=== PATIENT | male | born 1965 | race Caucasian/White ===

== ENCOUNTER 2018-12-03 10:13 | Emergency (ER) | payer MEDICAID ==
[~2018-12-03] VITALS: Ht 167.6 cm; Wt 68.0 kg
--- OUTSIDE RECORDS SUMMARY | ~2018-12-03 | XMS | Clinical Summary ---
Demographics + + + | Address | [address] | | | [place] [address] | + + + | Home Phone | | + + + | Preferred Language | Unknown | + + + | Marital Status | Single | + + + | Buddhist Affiliation | Unknown | + + + | Race | Unknown | + + + | Ethnic Group | Unknown | + + + Author + + + | Author | [facility] | | | and [place] | + + + | Organization | [facility] | | | and [place] | + + + | Address | Unknown | + + + | Phone | Unavailable | + + + Support + + +---------+ + | Name | Relationship | Address | Phone | + + +---------+ + | Teddy Alatorre | ECON | Unknown | | + + +---------+ + Care Team Providers + +------+ + | Care Gas Meter Checker Name | Role | Phone | + +------+ + | No, Physician | PP | Unavailable | + +------+ + Allergies No Known Allergies Medications + + + +---------+------+------+-------+ | Medication | Sig | Dispensed | Refills | Star | End | Statu | | | | | | t | Date | s | | | | | | Date | | | + + + +---------+------+------+-------+ | | Take 1 tablet by | 15 | 0 | 02/2 | | Activ | | HYDROcodone-acetamin | mouth every 6 hours | tablet | | 0/20 | | e | | ophen (NORCO) 5-325 | as needed. | | | 18 | | | | mg per tablet | | | | | | | + + + +---------+------+------+-------+ Active Problems Not on file Immunizations + + + + | Name | Dates Previously Given | Next Due | + + + + | TDAP, (ADOL/ADULT) | 09/07/2017 | | + + + + Social History + + + +--------+------+ | Tobacco Use | Types | Packs/Day | Years | Date | | | | | Used | | + + + +--------+------+ | Current Every Day | Cigarettes | | | | | Smoker | | | | | + + + +--------+------+ + + +---------+ + | Alcohol Use | Drinks/We | oz/Week | Comments | | | ek | | | + + +---------+ + | No | | | | + + +---------+ + + + + | Sex Assigned at | Date Recorded | | | | + + + | Not on file | | + + + + + + + | Job Start Date | Occupation | Industry | + + + + | Not on file | Not on file | Not on file | + + + + + + + + | Travel History | Travel Start | Travel End | + + + + + + | No recent travel history available. | + + Last Filed Vital Signs + + + + | Vital Sign | Reading | Time Taken | + + + + | Blood Pressure | 140/96 | 09/07/20172 PST | + + + + | Pulse | 76 | 09/07/2017 1402 PST | + + + + | Temperature | 36.7 C (98.1 F) | 09/07/20171401 PST | + + + + | Respiratory Rate | 12 | 09/07/20171401 PST | + + + + | Oxygen Saturation | 100% | 09/07/20171401 PST | + + + + | Inhaled Oxygen | - | - | | Concentration | | | + + + + | Weight | 70.3 kg (155 lb) | 09/07/20171401 PST | + + + + | Height | 167.6 cm (5' 6") | 09/07/20171401 PST | + + + + | Body Mass Index | 25.02 | 09/07/20171401 PST | + + + + Plan of Treatment + + + + + | Health Maintenance | Due Date | Last Done | Comments | + + + + + | Vaccine: Zoster (1 | | | | | of 2) | 6 | | | + + + + + | Vaccine: Influenza | | | | | (Season Ended) | 9 | | | + + + + + | Vaccine: | | 09/07/2017 | | | Dtap/Tdap/Td (2 - | 8 | | | | Td) | | | | + + + + + Results Not on filefrom Last 3 Months Insurance + +--------+ +--------+-------+---------+--------+ | Payer | Benefi | Subscriber | Effect | Phone | Address | Type | | | t Plan | ID | erica | | | | | | / | | Dates | | | | | | Group | | | | | | + +--------+ +--------+-------+---------+--------+ | [employer] | AMERIG | [id number] | 03/19/20 | | | Medica | | HMO | ROUP | | 16-Pre | | | id | | | APPLE | | sent | | | | | | [place] | | | | | | | | [place] | | | | | | + +--------+ +--------+-------+---------+--------+ + +--------+ +--------+ + + | Guarantor Name | Accoun | Relation to | Date | Phone | Billing Address | | | t Type | Patient | of | | | | | | | | | | + +--------+ +--------+ + + | Jay Alatorre | Person | Self | [birth year] | [address] | | | [place] | | 1966 | [phone] | [place] [address] | | | [place]ie | | | [address] (Home) | | + +--------+ +--------+ + + Advance Directives Patient has advance care planning documents on file. For more information, please contact:[facility] [address]
--- OUTSIDE RECORDS SUMMARY | ~2018-12-03 | XMS | Clinical Summary ---
Demographics + + + | Address | [address] | | | [place] [address] | + + + | Home Phone | | + + + | Preferred Language | Unknown | + + + | Marital Status | Single | + + + | Zoroastrianism Affiliation | Unknown | + + + | Race | Unknown | + + + | Ethnic Group | Unknown | + + + Author + + + | Author | [facility] | | | and [place] | + + + | Organization | [facility] | | | and [...] Team Providers + +------+ + | Care Machine Presser Name | Role | Phone | + [...] +--------+-------+---------+--------+ | [employer] | AMER[employer] | [id number] | 03/19/20 | | | Medica | [...] | | [place] | | 1966 | [phone] | [place] [address] | | | caitie | | | [address] (Home) | | + +--------+ +--------+ + + Advance Directives Patient has advance care planning documents on file. For more information, please contact:[facility] [place] [address]
[2018-12-03] MEDS ORDERED: CYCLOBENZAPRINE10 MG PO (13:33)
== END 2018-12-03 13:42 | disposition home or self-care (01) ==
LOC: ED 10:13
DX: M54.9 Dorsalgia, unspecified (principal); I10 Essential (primary) hypertension; F17.200 Nicotine dependence, unspecified, uncomplicated; Z87.442 Personal history of urinary calculi
CPT/HCPCS: 74176; 80053; 81001; 85025; 96361; 96374; 96375; 99284-25; 99406; J1885; J2405; J7030

== ENCOUNTER 2024-10-13 08:21 | Emergency (ER) | payer SELFPAY ==
[~2024-10-13] VITALS: Ht 167.6 cm; Wt 63.0 kg
[~2024-10-13 08:21] MED LIST: ADVIL200 M1 PO; ANTI-ITCH28 G1 TOP; ANTIFUNGAL113 GM MISC; CYCLOBENZAPRINE10 MG PO
[2024-10-13] MEDS ORDERED: MORPHINE SULFATE 4 MG/ML VIAL IV ONE (09:30)
[2024-10-13] MEDS ORDERED: ondansetron HCL 4 MG/2 ML VIAL IV ONE (09:30)
[2024-10-13 09:49] LABS: BASOPHILS 0.2 % (0-2); EOSINOPHILS 0.3 % (0-6); HEMATOCRIT 46.5 % (35.0-50.0); HEMOGLOBIN 16.1 g/dL (12.0-18.0); LYMPHOCYTES 3.7 % (24-44); MCH 31.2 (27-36); MCHC 34.7 g/dl (30-36); MCV 89.9 fl (81-99); MONOCYTES 7.4 % (0-12); NEUTROPHILS 88.4 % (39-80); PLATELET COUNT 185 K/uL (140-440); RBC 5.17 M/ul (4.3-5.7); RDW 13.1 (10.5-15.0)
[2024-10-13 10:01] LABS: ALBUMIN 3.9 g/dL (3.4-5.0); ALBUMIN/GLOBULIN RATIO 1.03 (1.1-2.4); ANION GAP 15.1 (7-21); BILIRUBIN, TOTAL 0.9 mg/dL (0.2-1.0); BUN/CREATININE RATIO 10.63 (6.0-28.6); CREATININE, SERUM 0.94 mg/dL (0.70-1.30); POTASSIUM 4.1 mmol/L (3.5-5.1); PROTEIN, TOTAL 7.7 g/dL (6.4-8.2)
[2024-10-13] MEDS ORDERED: AMP/SULBACTAM SOD 3 GM VIAL IV ONE ×3 (12:08→19:01)
[2024-10-13] MEDS ORDERED: HYDROmorphone HCL 1 MG/ML SYR IM ONE (12:15)
[2024-10-13] MEDS ORDERED: AMP/SULBACTAM SOD 3 GM in SODIUM CHLORIDE 0.9% 100 ML IV ONE ×2 (12:15→18:45)
[2024-10-13] MEDS ORDERED: VANCOMYCIN HCL 1 GM in DEXTROSE 5% 250 ML IV ONE (12:30)
[2024-10-13] MEDS ORDERED: AMP/SULBACTAM SOD 3 GM in SODIUM CHLORIDE 0.9% 100 ML IV SCH (14:00)
[2024-10-13] MEDS ORDERED: SODIUM CHLORIDE 0.9% 1,000 ML IV PRN (14:00)
[2024-10-13] MEDS ORDERED: HYDROmorphone HCL 1 MG/ML SYR IV ONE (16:00)
[2024-10-13] MEDS ORDERED: CHLORHEXIDINE 0.12% MT ONE (18:45)
[2024-10-13] MEDS ORDERED: RINSE MT ONE (18:45)
[2024-10-13] MEDS ORDERED: DEXAMETHASONE SOD PHOS 10 MG/ML VIAL IV ONE (18:45)
[2024-10-13 21:12] VITALS: BP 153/75
== END 2024-10-13 21:05 | disposition short-term general hospital (02) ==
LOC: ED 08:21
PROVIDERS: Emergency Medicine
DX: K04.7 Periapical abscess without sinus (principal); K02.9 Dental caries, unspecified; I10 Essential (primary) hypertension; F17.200 Nicotine dependence, unspecified, uncomplicated
CPT/HCPCS: 36415; 41800; 70491; 80053; 85025; 99284-25; J0295; J1100; J1171; J2270; J2405; J3370; J7030; J7060; Q9967

== ENCOUNTER 2025-05-09 13:13 | Emergency (ER) | payer OTHER ==
[~2025-05-09] VITALS: Ht 167.6 cm; Wt 65.1 kg
[2025-05-09] MEDS ORDERED: FLUORESCEIN SOD 1 EA STRP OS ONE (15:45)
[2025-05-09] MEDS ORDERED: TETRACAINE HCL 0.5% 4 ML BTL OS ONE (15:45)
[2025-05-09 17:35] VITALS: BP 159/93
[2025-05-09] MEDS ORDERED: CIPROFLOXACIN2.5 M1 OS (17:39)
[2025-05-09] MEDS ORDERED: ACULAR5 ML OS (17:39)
== END 2025-05-09 17:44 | disposition home or self-care (01) ==
LOC: ED 13:13
DX: T15.02XA Foreign body in cornea, left eye, initial encounter (principal); I10 Essential (primary) hypertension; Z87.442 Personal history of urinary calculi; F17.200 Nicotine dependence, unspecified, uncomplicated; W44.9XXA Unspecified foreign body entering into or through a natural orifice, initial encounter
CPT/HCPCS: 65220; 99283